=== PATIENT | male | born 1960 | race Caucasian/White ===

== ENCOUNTER 2017-06-13 17:46 | Emergency (ER) | payer OTHER ==
[2017-06-13] MEDS ORDERED: LIDOCAINE 1% INJ-PF (10 MG/ML) 30 ML SDV INJ ONE (18:37)
--- NOTE | 2017-06-13 18:40 | ER Document Report ---
HPI - HPI Pain Level: Denies Associated Symptoms: None Notes: Patient is a 56-year-old male presents the ED complaining of a laceration to his right elbow status post injury while at work this afternoon. 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 Patient states that the metal object was intact and he believes that the laceration was superficial. He did wrap it and clean it and came to the ED. Patient states he still has sensation in his hand and is still able to move his elbow and hand without any difficulties. No other concerns or complaints. Denies any drug allergies, daily medications, significant past medical history. His PCM is in the [facility]. Patient is returning to that area at this week. - ROS Notes: REVIEW OF SYSTEMS: CONSTITUTIONAL : Denies fever, chills, or sweats. Denies recent illness. CARDIOVASCULAR: Denies chest pain. Denies palpitations or racing or irregular heart beat. Denies ankle edema. RESPIRATORY: Denies cough, cold, or chest congestion. Denies shortness of breath, difficulty breathing, or wheezing. GASTROINTESTINAL: Denies abdominal pain or distention. Denies nausea, vomiting , or diarrhea. Denies blood in vomitus, stools, or per rectum. Denies black, tarry stools. Denies constipation. GENITOURINARY: Denies difficulty urinating, painful urination, burning, frequency, blood in urine, or discharge. MUSCULOSKELETAL: see hpi SKIN: see hpi NEUROLOGICAL: Denies confusion or altered mental status. Denies passing out or loss of consciousness. Denies dizziness or lightheadedness. Denies headache. Denies weakness or paralysis or loss of use of either side. Denies problems with gait or speech. Denies sensory loss, numbness, or tingling. ALL OTHER SYSTEMS REVIEWED AND NEGATIVE. Dictation was performed using [employer] voice recognition software - CARDIOVASCULAR Cardiovascular: DENIES: Chest pain - REPRODUCTIVE Reproductive: DENIES: : - DERM Skin Color: Normal Past Medical History - Social History Smoking Status: Current Every Day Smoker Chew tobacco use (# tins/day): No Frequency of alcohol use: None Drug Abuse: None Family History: Reviewed & Not Pertinent Renal/ Medical History: Denies: Hx Peritoneal Dialysis - Immunizations Hx Diphtheria, Pertussis, Tetanus Vaccination: Yes - 8 months ago Vertical Provider Document - CONSTITUTIONAL Agree With Documented VS: Yes Notes: PHYSICAL EXAMINATION: GENERAL: Well-appearing, well-nourished and in no acute distress. LUNGS: Breath sounds clear to auscultation bilaterally and equal. No wheezes rales or rhonchi. HEART: Regular rate and rhythm without murmurs, rubs, gallops. Musculoskeletal: Rt elbow: FROM to passive/active. Strength 5+/5. + 2cm laceration noted in a horseshoe pattern to the posterior rt distal arm. The laceration is not deep. No abscess, purulent discharge, or lymphangitis. N/V intact distal. No tendon rupture. Extremities: No cyanosis, clubbing, or edema b/l. Peripheral pulses 2+. Capillary refill less than 3 seconds. NEUROLOGICAL: Normal sensory, motor exams PSYCH: Normal mood, normal affect. SKIN: Warm, Dry, normal turgor, no rashes or lesions noted.--see MSK exam. - INFECTION CONTROL TRAVEL OUTSIDE OF THE [place] IN LAST 30 DAYS: Yes COUNTRY TRAVELED TO/FROM: [place] - RESPIRATORY O2 Sat by Pulse Oximetry: 98 Course - Re-evaluation Re-evalutation: 06/13/17 20:53 Patient is an afebrile, well-hydrated, 56-year-old male who presents the ED with a right distal posterior arm laceration just proximal to the elbow. Vitals are stable. PE otherwise unremarkable. Wound edges were approximated appropriately using 3 simple interrupted sutures. Sterile dressing applied and wound instructions provided. I will give him Keflex twice a day for 5 days as prophylactic. Conservative measures otherwise for symptoms. The sutures will need removed in 10-14 days. Recommend a wound recheck in 2-3 days. Return to the ED with any worsening/concerning symptoms otherwise as reviewed in discharge. Patient is in agreement. - Vital Signs Vital signs: Temp Pulse Resp BP Pulse Ox 97.6 F 78 18 144/95 H 98 06/13/17 18:02 06/13/17 18:02 06/13/17 18:02 06/13/17 18:02 06/13/17 18:02 Procedures - Laceration/Wound Repair Right Distal Arm Time completed: 18:00 Wound length (cm): 2 Wound's Depth, Shape: Superficial, Irregular Laceration pre-procedure: Sterile PPE donned, Sterile drapes applied, Shur- Clens applied Anesthetic type: 1% Lidocaine Volume Anesthetic (mLs): 6 Wound explored: Clean, No foreign body removed Irrigated w/ Saline (mLs): 60 Wound Debrided: Minimal Wound Repaired With: Sutures Suture Size/Type: 4:0, Nylon Number of Sutures: 3 Layer Closure?: No Post-procedure wound care: Sterile dressing applied Post-procedure NV exam normal: Yes Complications: No Discharge - Discharge Clinical Impression: Laceration of elbow Qualifiers: Encounter type: initial encounter Laterality: right Qualified Code(s): S51.011A - Laceration without foreign body of right elbow, initial encounter Condition: Stable Disposition: HOME, SELF-CARE Instructions: Laceration Care ([facility]), Prophylactic Antibiotic ([facility]), Soap Cleansing ([facility]), Antibiotic Ointment Protection ([facility]) Additional Instructions: Do not shower or bathe for 24 hours. After 24 hours you may shower but no submersion of the wound under water. Keep the original dressing on the wound for 24 hours unless the drainage soaks through. Change the dressing daily thereafter and keep the knots of the suture material clean from any dried discharge. You may leave the wound open to the air once there is no more discharge. Return to the ED and/or your PCM in 2-3 days for a recheck. Monitor for any signs of worsening pain or redness, purulent drainage, streaks, and/or fever. Return to the ED if noticing any of the above symptoms or as needed. Take medications as directed. Your sutures will need to be removed in 10-14 days. Forms: Elevated Blood Pressure, Smoking Cessation Education Referrals: [facility] [Provider Group] - Follow up as needed
[2017-06-13 20:28] VITALS: BP 144/90
== END 2017-06-13 20:26 | disposition home or self-care (01) ==
LOC: ER 17:46
PROC: 0HQDXZZ Repair Right Lower Arm Skin, External Approach (ICD-10-PCS; principal; 2017-06-13)
DX: S51.011A Laceration without foreign body of right elbow, initial encounter (principal); W07.XXXA Fall from chair, initial encounter; Y99.0 Civilian activity done for income or pay; F17.200 Nicotine dependence, unspecified, uncomplicated
CPT/HCPCS: 99282; 12001; J3490

== ENCOUNTER 2017-06-23 13:13 | Emergency (ER) | payer OTHER ==
[2017-06-23 13:18] VITALS: BP 136/98
--- NOTE | 2017-06-23 13:23 | ER Document Report ---
ED Suture/Wound Recheck - General Chief Complaint: Suture Removal Stated Complaint: TAKE STITCHES OUT Time Seen by Provider: 06/23/17 13:22 Mode of Arrival: Ambulatory Information source: Patient TRAVEL OUTSIDE OF THE [place] IN LAST 30 DAYS: Yes COUNTRY TRAVELED TO/FROM: [place] - [facility] Patient complains to provider of: Requesting suture removal Treated in ED (days ago): 9 Previous ED treatment: Laceration repair Quality of pain: No pain Severity: None Pain Level: Denies Context: Injury Symptoms since procedure: No complaints Exacerbated by: Denies Relieved by: Denies Notes: Patient is a 56-year-old male who presents to the emergency room requesting suture removal from right elbow injury that he sustained approximately 9 days ago, after trip and fall, he was seen in this department and had sutures placed , he denies any worsening of symptoms, no fevers, no drainage, no pain, patient reports full range of motion at elbow joint with no distal extremity numbness or tingling - Related Data Allergies/Adverse Reactions: No Known Allergies Allergy (Verified 06/23/17 13:16) Past Medical History - General Information source: Patient - Social History Smoking Status: Unknown if Ever Smoked Family History: Reviewed & Not Pertinent Renal/ Medical History: Denies: Hx Peritoneal Dialysis - Immunizations Hx Diphtheria, Pertussis, Tetanus Vaccination: Yes - 8 months ago Review of Systems - Review of Systems Constitutional: No symptoms reported EENT: No symptoms reported Cardiovascular: No symptoms reported Respiratory: No symptoms reported Gastrointestinal: No symptoms reported Genitourinary: No symptoms reported Male Genitourinary: No symptoms reported Musculoskeletal: No symptoms reported Skin: See HPI Hematologic/Lymphatic: No symptoms reported Neurological/Psychological: No symptoms reported -: Yes All other systems reviewed and negative Physical Exam - Vital signs Vitals: Temp Pulse Resp BP Pulse Ox 98.8 F 81 14 136/98 H 98 06/23/17 13:16 06/23/17 13:16 06/23/17 13:16 06/23/17 13:16 06/23/17 13:16 - Notes Notes: - General General appearance: Appears well, Alert In distress: None - HEENT Head: Normocephalic, Atraumatic Eyes: Normal Conjunctiva: Normal Extraocular movements intact: Yes Eyelashes: Normal Pupils: PERRL - Respiratory Respiratory status: No respiratory distress - Cardiovascular Rhythm: Regular - Abdominal Inspection: Normal - Back Back: Normal - Extremities General upper extremity: Posterior RIGHT elbow with 2.5 cm scabbed wound, it is clean dry and intact, there are [address], distal sensation and motor is intact with 2+ radial pulses General lower extremity: Normal inspection - Neurological Neuro grossly intact: Yes Orientation: AAOx4 Moore Coma Scale Eye Opening: Spontaneous Jocelyne Coma Scale Verbal: Oriented Moore Coma Scale Motor: Obeys Commands Jocelyne Coma Scale Total: 15 - Psychological Associated symptoms: Normal affect, Normal mood - Skin Skin Temperature: Warm Skin Moisture: Dry Skin Color: Normal Course - Re-evaluation Re-evalutation: 06/23/17 13:26 3 SUTURES were removed without difficulty, wound is clean dry and intact, without signs of infection or neurovascular injury, patient was given wound care instructions and instructions for follow-up, advised to return if any additional concerns, patient acknowledges understanding and agreement with this plan 06/23/17 13:26 - Vital Signs Vital signs: Temp Pulse Resp BP Pulse Ox 98.8 F 81 14 136/98 H 98 06/23/17 13:16 06/23/17 13:16 06/23/17 13:16 06/23/17 13:16 06/23/17 13:16 Discharge - Discharge Clinical Impression: Encounter for removal of sutures Condition: Stable Disposition: HOME, SELF-CARE Instructions: Suture Removal, Dressing Instructions for Open Wounds ([facility]) Additional Instructions: Follow up with your primary care provider in one to 2 days. Return to the emergency room immediately if symptoms worsen or any additional concerns.
== END 2017-06-23 13:24 | disposition home or self-care (01) ==
LOC: ER 13:13
DX: Z48.02 Encounter for removal of sutures (principal)